=== PATIENT | male | born 1995 | race Asian ===

== ENCOUNTER 2023-06-07 22:38 | Emergency (ER) | payer SELFPAY ==
[~2023-06-07] VITALS: Ht 172.7 cm; Wt 61.2 kg
[2023-06-07 22:52] VITALS: BP_SYST 107; PULSE 68; RESP 16; TEMP 98.4; O2SAT 18
[2023-06-07] MEDS ORDERED: VANCOMYCIN HCL 1,000 MG in NS 250 ML IV ONE (23:00)
[2023-06-07] MEDS ORDERED: NACL 0.9% 1,000 ML IV ONE (23:00)
[2023-06-07] MEDS ORDERED: VANCOMYCIN HCL 1000 MG/VIAL IV ONE (23:15)
[2023-06-08] MEDS ORDERED: SULF1TAB48 PO (01:03)
[2023-06-08] MEDS ORDERED: BACITRACIN 1 GM OINT TP ONE (01:15)
[2023-06-08 01:25] VITALS: BP_SYST 99; PULSE 86; RESP 16; TEMP 98.2; O2SAT 100
== END 2023-06-08 01:25 | disposition home or self-care (01) ==
LOC: SED 22:38
DX: T23.272A Burn of second degree of left wrist, initial encounter (principal); Z21 Asymptomatic human immunodeficiency virus [HIV] infection status; Z79.899 Other long term (current) drug therapy; X08.8XXA Exposure to other specified smoke, fire and flames, initial encounter; Y93.89 Activity, other specified; Y92.89 Other specified places as the place of occurrence of the external cause; Y99.8 Other external cause status
CPT/HCPCS: 99284; 96365; 87040; 36415; 83605; J3370

== ENCOUNTER 2024-01-22 09:35 | Emergency (ER) | payer MEDICAID, OTHER ==
[~2024-01-22] VITALS: Ht 172.7 cm; Wt 68.0 kg
[~2024-01-22 09:35] MED LIST: SULF1TAB48 PO
[2024-01-22 09:39] VITALS: BP_SYST 130; PULSE 70; RESP 18; TEMP 98.3; O2SAT 100
[2024-01-22 10:29] VITALS: BP_SYST 130; PULSE 70; RESP 18; TEMP 98.3; O2SAT 100
== END 2024-01-22 10:29 | disposition home or self-care (01) ==
LOC: SED 09:35
DX: T18.9XXA Foreign body of alimentary tract, part unspecified, initial encounter (principal); Z79.899 Other long term (current) drug therapy; W44.9XXA Unspecified foreign body entering into or through a natural orifice, initial encounter; Y93.89 Activity, other specified; Y92.89 Other specified places as the place of occurrence of the external cause; Y99.8 Other external cause status
CPT/HCPCS: 99283